=== PATIENT | female | born 1965 | race Caucasian/White ===

== ENCOUNTER 2017-03-16 13:42 | Emergency (ER) | payer MEDICAID ==
[~2017-03-16] VITALS: Ht 167.6 cm; Wt 66.0 kg
[2017-03-16 13:47] VITALS: BP 156/89
[2017-03-16] MEDS ORDERED: KETOROLAC 30 MG/1 ML ONE (15:07)
[2017-03-16] MEDS ORDERED: KETOROLAC 30 MG/1 ML IM ONE (15:30)
== END 2017-03-16 15:19 | disposition home or self-care (01) ==
LOC: ED 15:17
DX: S83.411A Sprain of medial collateral ligament of right knee, initial encounter (principal); I10 Essential (primary) hypertension; W01.0XXA Fall on same level from slipping, tripping and stumbling without subsequent striking against object, initial encounter; Y93.89 Activity, other specified; Y92.89 Other specified places as the place of occurrence of the external cause; Y99.8 Other external cause status
CPT/HCPCS: 73560; 96372; 99284; J1885

== ENCOUNTER → 2017-11-10 | Outpatient (CLI) | payer MEDICAID | END | disposition home or self-care (01) | LOC: CARD 12:02 | PROVIDERS: ATTEND Nurse Practitioner Adult Health | DX: R06.09 Other forms of dyspnea (principal) | CPT/HCPCS: 94060; 94726; 94729 ==

== ENCOUNTER 2018-05-18 09:25 | Emergency (ER) | payer MEDICAID ==
[~2018-05-18] VITALS: Ht 167.6 cm; Wt 67.5 kg
[2018-05-18 09:36] VITALS: BP 160/79
== END 2018-05-18 10:59 | disposition home or self-care (01) ==
LOC: ED 10:50
DX: T15.02XA Foreign body in cornea, left eye, initial encounter (principal); H18.822 Corneal disorder due to contact lens, left eye; X58.XXXA Exposure to other specified factors, initial encounter; Y93.89 Activity, other specified; Y92.89 Other specified places as the place of occurrence of the external cause; Y99.8 Other external cause status
CPT/HCPCS: 65205; 65220; 99284

== ENCOUNTER 2018-12-25 13:44 | Emergency (ER) | payer MEDICAID ==
[~2018-12-25] VITALS: Ht 165.1 cm; Wt 66.0 kg
[2018-12-25] MEDS ORDERED: SODIUM CHLORIDE FLUSH 10ML SYR IVF ONE (14:30)
[2018-12-25] MEDS ORDERED: PROCHLORPERAZINE 5 MG/ML, 2ML IVPush ONE (14:30)
[2018-12-25] MEDS ORDERED: DIPHENHYDRAMINE 50 MG/ML, 1ML IVPush ONE (14:30)
--- NOTE | 2018-12-25 14:36 | NUR ---
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
[2018-12-25] MEDS ORDERED: DIPHENHYDRAMINE 50 MG/ML, 1ML ONE (14:45)
[2018-12-25] MEDS ORDERED: PROCHLORPERAZINE 5 MG/ML, 2ML ONE (14:45)
--- NOTE | 2018-12-25 15:06 | NUR ---
FIRST CONTACT WITH PT. PT LAYING IN GURNEY, LIGHTS OFF AND FACE COVERED BY BLANKET FOR COMFORT. PT CO WORSENING LATIF X ONE WEEK. +L SIDED NECK PAIN/STIFFNESS AND SENSITIVITY TO LIGHT/BLURRED VISION. DENIES HX OF SAME. AIRWAY PATENT, SPEECH CLEAR, PT MANAGING OWN SECRETIONS. IV ESTABLISHED. PT MEDICATED PER EMAR FOR PAIN. 2L O2 BY NC FOR SUPPORT POST MEDICATIONS, SPO2 >90% ON 2L. MOTHER AT BEDSIDE. MOTHER/PT UPDATED TO POC (CT/RESULTS/RECHECK) AND DEMONSTRATES UNDERSTANDING.
[2018-12-25] MEDS ORDERED: DIAZEPAM 5 MG TABLET PO ONE (15:30)
[2018-12-25 15:53] LABS: HCT (SEDRATE) 47.7 % (34.6-47.8)
[2018-12-25 15:56] LABS: BASOPHILS # (AUTO) 0.03 x10^3/uL (0-0.1); BASOPHILS % (AUTO) 1 % (0-1); EOSINOPHILS # (AUTO) 0.21 x10^3/uL (0-0.4); EOSINOPHILS % (AUTO) 4 % (1-7); LYMPHOCYTES # (AUTO) 1.81 x10^3/uL (1-3.4); LYMPHOCYTES % (AUTO) 36 % (22-44); MD NO; MEAN CORPUSCULAR HEMOGLOBIN 29.6 pg (27.0-34.8); MEAN CORPUSCULAR HGB CONC 32.6 g/dL (32.4-35.8); MEAN CORPUSCULAR VOLUME 90.9 fL (80-100); MEAN PLATELET VOLUME 7.7 fL (7.4-10.4); MONOCYTES # (AUTO) 0.52 x10^3/uL (0.2-0.8); MONOCYTES % (AUTO) 11 % (2-9); NEUTROPHILS % (AUTO) 48 % (42-75); PLATELET COUNT 285 x10^3/uL (130-400); RED BLOOD COUNT 5.27 x10^6/uL (3.82-5.3); RED CELL DISTRIBUTION WIDTH 12.5 % (9.6-15.2)
[2018-12-25 16:06] VITALS: BP 148/80
[2018-12-25 16:06] LABS: ALANINE AMINOTRANSFERASE 19 U/L (12-78); ALBUMIN 3.3 g/dL (3.4-5.0); ANION GAP 6 mmol/L (5-15); CALCIUM 8.5 mg/dL (8.5-10.1); CHLORIDE 110 mmol/L (98-107)
--- NOTE | 2018-12-25 16:07 | NUR ---
ADDITIONAL IV ACCESS ESTABLISHED FOR CTA. ADDITIONAL PAIN MEDICATIONS HELD PT IS MOSTLY SLEEPY. PT ARROUSABLE TO VOICE AND LIGHT PHYSICAL STIM THEN RETURNS QUICKLY TO SLEEP.
[2018-12-25 16:09] LABS: ALKALINE PHOSPHATASE 95 U/L (45-117); BILIRUBIN,TOTAL 0.4 mg/dL (0.2-1.0); CREATININE 0.79 mg/dL (0.55-1.02); TOTAL PROTEIN 6.8 g/dL (6.4-8.2)
--- NOTE | 2018-12-25 17:36 | NUR ---
DC EDUCATION PROVIDED, PT DEMONSTRATES UNDERSTANDING. PT TRANSFERED SELF TO WHEELCHAIR. WHEELED TO DC WITH RN AND MOTHER. MOTHER TO TRANSPORT PT HOME.
== END 2018-12-25 17:38 | disposition home or self-care (01) ==
LOC: ED 17:32
DX: G44.201 Tension-type headache, unspecified, intractable (principal); I10 Essential (primary) hypertension
CPT/HCPCS: 36415; 70450; 70496; 70498; 80053; 85025; 85651; 93005; 96374; 96375; 99284; J0780; J1200

== ENCOUNTER 2020-02-01 06:44 | Emergency (ER) | payer MEDICAID ==
[~2020-02-01] VITALS: Ht 165.1 cm; Wt 61.4 kg
[2020-02-01] MEDS ORDERED: OMEP-110 PO (06:50)
[2020-02-01] MEDS ORDERED: AMLO2.5T5 PO (06:50)
[2020-02-01] MEDS ORDERED: VIT B12 (06:51)
--- NOTE | 2020-02-01 07:17 | NUR ---
THIS IS A 55 YO F W/ C/O DIFFICULTY SWALLOWING AFTER EATING POK CHOPS. PT RESP EVEN AND UNLABORED, VSS, NADN. PER [facility] WILL COME AND SCOPE IN A FEW HOURS. PT UPDATED ON POC. RESTING ON [employer]/ CALL LIGHT IN REACH. DENIES FURTHER NEEDS AT THIS TIME.
[2020-02-01] MEDS ORDERED: SODIUM CHLORIDE FLUSH 10ML SYR IVF ONE (07:30)
--- NOTE | 2020-02-01 07:39 | NUR ---
PT REQUESTING ICE CHIPS. PER PT IS NPO AT THIS TIME.
[2020-02-01 08:16] VITALS: BP 118/74
--- NOTE | 2020-02-01 08:54 | NUR ---
REPORT FROM JEROME, ASSUME CARE OF PT AT THIS TIME.
[2020-02-01] MEDS ORDERED: PROPOFOL 10 MG/ML, 20ML ONE (09:23)
--- NOTE | 2020-02-01 09:51 | NUR ---
ENDOSCOPY COMPLETED, 180 MG PROPOFOL GIVEN DURING PROCEDURE. FB REMOVED/CLEARED. SEE SEDATION PAPERWORK.
== END 2020-02-01 08:24 | disposition home or self-care (01) ==
LOC: ED 08:23
DX: T18.128A Food in esophagus causing other injury, initial encounter (principal); R09.89 Other specified symptoms and signs involving the circulatory and respiratory systems; I10 Essential (primary) hypertension; X58.XXXA Exposure to other specified factors, initial encounter; Y93.89 Activity, other specified; Y92.89 Other specified places as the place of occurrence of the external cause; Y99.8 Other external cause status
CPT/HCPCS: 99152; 99285

== ENCOUNTER 2021-03-09 08:38 | Inpatient (IN) | payer MEDICAID ==
[~2021-03-09] VITALS: Ht 167.6 cm; Wt 67.0 kg
[2021-03-11 07:51] VITALS: BP 106/71
== END 2021-03-11 10:15 | disposition left against medical advice (07) | DRG 291 ==
LOC: ED 09:08 → EDIP 10:47 → 3N 12:07
PROVIDERS: ADMIT Hospitalist; ATTEND Internal Medicine
DX: I11.0 Hypertensive heart disease with heart failure (principal); J96.01 Acute respiratory failure with hypoxia; J98.11 Atelectasis; J44.1 Chronic obstructive pulmonary disease with (acute) exacerbation; I50.43 Acute on chronic combined systolic (congestive) and diastolic (congestive) heart failure; I50.82 Biventricular heart failure; Z53.29 Procedure and treatment not carried out because of patient's decision for other reasons; M41.9 Scoliosis, unspecified; Z20.822 Contact with and (suspected) exposure to COVID-19; Z87.891 Personal history of nicotine dependence; Z88.5 Allergy status to narcotic agent; Z88.8 Allergy status to other drugs, medicaments and biological substances